=== PATIENT | male | born 1995 | race Caucasian/White ===

== ENCOUNTER 2017-11-04 20:48 | Emergency (ER) | payer SELFPAY, OTHER | END 2017-11-04 22:16 | disposition left against medical advice (07) | LOC: FTE 22:16 | DX: Z53.21 Procedure and treatment not carried out due to patient leaving prior to being seen by health care provider (principal) | CPT/HCPCS: 82962 ==

== ENCOUNTER 2017-12-21 10:38 | Emergency (ER) | payer OTHER ==
[2017-12-21] MEDS: IBUPROFEN 600 MG TAB PO (11:02)
== END 2017-12-21 11:36 | disposition home or self-care (01) ==
LOC: FTE 10:38
DX: J02.9 Acute pharyngitis, unspecified (principal); E11.9 Type 2 diabetes mellitus without complications
CPT/HCPCS: 87880; 99283